=== PATIENT | male | born 1960 | race Caucasian/White ===

== ENCOUNTER 2024-05-23 20:12 | Emergency (ER) | payer BC ==
[~2024-05-23] VITALS: Ht 170.2 cm; Wt 81.6 kg
[~2024-05-23 20:12] MED LIST: ASPI-1264 PO; FENOFIBRATE PO; GLIP-126 PO; HYT1T PO; LISI-222 PO; METF500T PO; METO50TA16 PO; MULT-227 PO; OMEG1CAP54 PO; RABE20TA25 PO; SIMV-42 PO
[2024-05-23] MEDS ORDERED: iohexol 350MG/ML 100ml bottle IV ONE (21:01)
[2024-05-23 21:12] LABS: BASOPHILS # (AUTO) 0.1 X10'3 (0-0.2); BASOPHILS % (AUTO) 0.6 % (0-1); EOSINOPHILS # (AUTO) 0.2 X10'3 (0-0.9); EOSINOPHILS % (AUTO) 1.9 % (0-6); HEMOGLOBIN 14.6 g/dl (14.0-17.9); LYMPHOCYTES # (AUTO) 3.4 X10'3 (1.1-4.8); LYMPHOCYTES % (AUTO) 31.8 % (21-51); MEAN CORPUSCULAR HEMOGLOBIN 30.8 PG (27.0-31.0); MEAN CORPUSCULAR HGB CONC 33.9 g/dL (33.0-36.5); MEAN CORPUSCULAR VOLUME 90.8 FL (78-98); MEAN PLATELET VOLUME 7.3 FL (7.4-10.4); MONOCYTES # (AUTO) 0.7 X10'3 (0-0.9); MONOCYTES % (AUTO) 6.7 % (2-12); NEUTROPHILS # (AUTO) 6.3 X10'3 (1.8-7.7); PLATELET COUNT 192 X10'3 (140-440); RED BLOOD COUNT 4.73 X10'6 (4.70-6.10); RED CELL DISTRIBUTION WIDTH 13.7 % (11.5-14.5); WHITE BLOOD COUNT 10.6 X10'3 (4.5-11.0)
[2024-05-23 21:36] LABS: APTT 25 SECONDS (22-32); PROTHROMBIN TIME 10.5 SECONDS (9.0-12.0)
[2024-05-23 21:40] LABS: ALANINE AMINOTRANSFERASE 21 U/L (12-78); ALBUMIN 3.9 G/DL (3.4-5.0); ALKALINE PHOSPHATASE 70 IU/L (46-116); ANION GAP 6 (8-16); ASPARTATE AMINO TRANSFERASE 12 U/L (10-37); BILIRUBIN,TOTAL 0.4 MG/DL (0.1-1.0); BLOOD UREA NITROGEN 10 MG/DL (7-18); BUN/CREATININE RATIO 8.6 (10.0-20.0); CALCIUM 9.3 MG/DL (8.5-10.1); CHLORIDE 104 MMOL/L (99-107); CREATININE 1.16 MG/DL (0.60-1.10); GLUCOSE 145 MG/DL (70-104); POTASSIUM 3.9 MMOL/L (3.5-5.1); SODIUM 141 MMOL/L (135-145); TOTAL CARBON DIOXIDE 31.3 MMOL/L (24-32); TOTAL PROTEIN 7.8 G/DL (6.4-8.2); eCRCL 60 ML/MIN; eGFR 63 ML/MIN
[2024-05-24] MEDS ORDERED: METH4TAB81 PO (00:37)
[2024-05-24] MEDS ORDERED: OXYC-658 PO (00:37)
[2024-05-24] MEDS: oxyCODONE/APAP 5-325mg tablet PO ONE (01:06)
[2024-05-24 01:20] VITALS: BP 117/85; PULSE 78; RESP 18; TEMP 98.9; O2SAT 98
== END 2024-05-24 01:23 | disposition home or self-care (01) ==
LOC: ER 20:13
DX: M54.16 Radiculopathy, lumbar region (principal); Z88.1 Allergy status to other antibiotic agents; Z79.82 Long term (current) use of aspirin; Z79.84 Long term (current) use of oral hypoglycemic drugs; Z79.899 Other long term (current) drug therapy
CPT/HCPCS: 36415; 71275; 74174; 80053; 85025; 85610; 85730; 93005; 99285; Q9967

== ENCOUNTER 2024-06-01 10:19 | Emergency (ER) | payer BC ==
[~2024-06-01] VITALS: Ht 167.6 cm; Wt 81.4 kg
[~2024-06-01 10:19] MED LIST changes: +METH4TAB81 PO; +OXYC-658 PO
[2024-06-01] MEDS: ketorolac trometh 15mg/ml vial 15 MG/ML ML IM ONE (11:18)
[2024-06-01] MEDS ORDERED: PRED20TA PO (11:21)
[2024-06-01] MEDS ORDERED: OXYC-145 PO (11:21)
[2024-06-01 11:25] VITALS: BP 140/88; PULSE 74; RESP 16; TEMP 98.5; O2SAT 99
== END 2024-06-01 11:33 | disposition home or self-care (01) ==
LOC: ER 10:20
DX: M54.17 Radiculopathy, lumbosacral region (principal); Z88.1 Allergy status to other antibiotic agents; Z79.82 Long term (current) use of aspirin; Z79.899 Other long term (current) drug therapy; Z79.84 Long term (current) use of oral hypoglycemic drugs
CPT/HCPCS: 96372; 99283; J1885

== ENCOUNTER 2024-06-10 12:13 | Emergency (ER) | payer BC, OTHER ==
[~2024-06-10] VITALS: Ht 165.1 cm; Wt 81.6 kg
[~2024-06-10 12:13] MED LIST changes: +OXYC-145 PO; +PRED20TA PO
[2024-06-10] MEDS: LORazepam 1 MG tablet PO ONE (16:54)
[2024-06-10] MEDS: ketorolac trometh 30MG/ML vial 30 MG/ML VIAL IM ONE (18:22)
[2024-06-10] MEDS ORDERED: CYCL-1 PO (19:06)
[2024-06-10] MEDS ORDERED: PRED20TA PO (19:06)
[2024-06-10] MEDS: HYDROcodone/acetaminophen 5mg/325mg tablet PO ONE ×2 (19:06→19:11)
[2024-06-10] MEDS: acetaminophen 325mg tablet PO ONE (19:10)
[2024-06-10] MEDS: ondansetron 4mg rapidly disintigrating tab PO ONE (19:11)
[2024-06-10 19:19] VITALS: BP 129/88; PULSE 97; RESP 16; TEMP 98.6; O2SAT 97
== END 2024-06-10 19:20 | disposition home or self-care (01) ==
LOC: ER 12:14
DX: M54.17 Radiculopathy, lumbosacral region (principal); Z79.82 Long term (current) use of aspirin; Z88.8 Allergy status to other drugs, medicaments and biological substances
CPT/HCPCS: 72148; 96372; 99285; J1885